=== PATIENT | male | born 1965 | race Caucasian/White ===

== ENCOUNTER 2018-09-11 16:05 | Inpatient (IN) | payer SELFPAY ==
[~2018-09-11] VITALS: Ht 165.1 cm; Wt 72.3 kg
[2018-09-11] MEDS ORDERED: MVI, ADULT NO.4 WITH VIT K 10 ML, FOLIC ACID SYRINGE for ER 1 MG, THIAMINE INJ 100 MG i... IV ONE ×4 (16:15)
--- NOTE | 2018-09-11 16:26 | PHYS DOC ---
Past History Past Medical History: Alcoholism, Anxiety, Depression, Seizure Past Medical History Limited due to ETOH intoxication Past Surgical History: No Surgical History Past Surgical History Limited due to ETOH intoxication. Smoking: Cigarettes Alcohol Use: Heavy Drug Use: None Social History Limited due to ETOH intoxication. Adult General Chief Complaint Chief Complaint: ALCOHOL INTOXICATION HPI HPI 52-year-old male presents via EMS with report of alcohol intoxication with statement made that he had some suicidal ideation today. Patient currently denies any suicidal ideation or plan. Patient does report having a thought earlier today which she was able to dismiss. Patient does report chronic alcoholism in which patient reportedly drinks 24ounce x 2-3 beers daily and has for several years. Patient reports he knows that he needs help. Reports is set up to do ETOH rehab but not until mid-October. Patient reports he also struggles with depression. Reports he and some friends got together and have been drinking all morning. Denies trauma. Denies fever/chills. Denies nausea or vomiting. Patient repots history of seizure disorder. Patient reports he thinks the seizures are related to his ETOH but unsure. Reports takes Gabapentin for seizures. Reports last seizure was approximately 1 month ago. History of present illness limited due to alcohol intoxication. Review of Systems Review of Systems Constitutional: Denies fever or chills Eyes: Denies redness or eye pain HENT: Denies nasal congestion or sore throat Respiratory: Denies cough or shortness of breath Cardiovascular: Denies chest pain or palpitations GI: Denies abdominal pain, nausea, or vomiting : Denies dysuria or hematuria Neurologic: Denies headache Psychiatric: Reports ETOH abuse, reports suicidal ideation; denies homicidal ideation. Review of systems limited due to alcohol intoxication Current Medications Current Medications Current Medications Medications (Trade) Dose Ordered Sig/Peña Start Time Stop Time Status Last Admin Dose Admin Multivitamins/ Minerals 10 ml/ Folic Acid 1 mg/ Thiamine HCl 100 mg/Sodium Chloride 1,011.1 ml @ 1,000 mls/ hr 1X ONCE 09/11/18 16:15 09/11/18 17:15 UNV Allergies Allergies Allergies Coded Allergies Type Severity Reaction Last Updated Verified No Known Drug Allergies 09/11/18 No Physical Exam Physical Exam Constitutional: Well developed, well nourished, intoxicated, disheveled HENT: Normocephalic, atraumatic, oropharynx moist Eyes: PERRL, EOMI, conjunctiva injected, horizontal nystagmus noted Neck: Normal range of motion, no tenderness, supple Cardiovascular: Heart rate normal, regular rhythm Lungs & Thorax: Bilateral breath sounds clear to auscultation, no wheezing Abdomen: Soft, no tenderness Skin: Warm, dry, no erythema, no rash Extremities: No tenderness, ROM intact, no edema Neurologic: Alert and oriented, pleasantly intoxicated, no focal deficits noted Psychologic: Affect flat, judgement abnormal EKG EKG @1632 NST at 98bpm, NO ST elevation, QRS 76ms, QT/QTc 332/426ms Radiology/Procedures Radiology/Procedures [] Course & Med Decision Making Course & Med Decision Making Pertinent Lab studies reviewed. (See chart for details) Patient presents with report of alcohol abuse with report of suicidal ideation this morning. Patient denies current plan. Patient does have a history of chronic alcohol use and history of seizures. Patient thinks seizures are related to his alcohol use however is not fully aware. Patient reports he is prescribed gabapentin for seizure control. Patient is awake but intoxicated. Labs obtained and posted to chart. Alcohol greater than 300. Lactic acid 3.8. SIRS criteria and not met. No source of infection noted. IV fluid hydration given in addition to banana bag. Patient requiring medical admission for clearance prior to psychiatric evaluation/admission. Patient requiring admission for further evaluation and treatment. Discussed with Dr. Rodriguez (hospitalist) who is in agreement with admission. Discussed findings and plan with patient, who acknowledges understanding and agreement. Dragon Disclaimer Dragon Disclaimer This electronic medical record was generated, in whole or in part, using a voice recognition dictation system. Departure Departure: Impression: Primary Impression: Alcohol abuse Additional Impressions: Lactic acidosis Impending delirium tremens Disposition: ADMITTED INPATIENT (ICU) Admitting Physician: Willie Rodriguez Condition: GUARDED Referrals: PCP,NO (PCP) Critical Care Time Critical care time was 30 minutes which includes time at bedside, spent in discussion of patient's care with specialists and/or family members, with interpretation of laboratory and/or radiological studies and is exclusive of procedures. Problem Qualifiers NATALIE MONTEZ DO Sep 11, 2018 16:26
[2018-09-11 16:33] LABS: BASO % 1 % (0-3); EOS # 0.1 x10^3/uL (0.0-0.7); EOS % 2 % (0-3); HEMATOCRIT 42.9 % (39.0-53.0); HEMOGLOBIN 14.9 g/dL (13.0-17.5); LYMPH # 2.1 x10^3/uL (1.0-4.8); LYMPH % 38 % (24-48); MEAN CORPUSCULAR HEMOGLOBIN 35 pg (25-35); MEAN CORPUSCULAR HGB CONC 35 g/dL (31-37); MEAN CORPUSCULAR VOLUME 101 fL (79-100); MONO # 0.8 x10^3/uL (0.0-1.1); MONO % 14 % (0-9); NEUT # 2.6 x10^3uL (1.8-7.7); NEUT % 46 % (31-73); PLATELET COUNT 115 x10^3/uL (140-400); RED BLOOD COUNT 4.27 x10^6/uL (4.30-5.70); RED CELL DISTRIBUTION WIDTH 14.6 % (11.5-14.5); WHITE BLOOD COUNT 5.6 x10^3/uL (4.0-11.0)
[2018-09-11 16:47] LABS: ACETAMIN < 2 mcg/mL (10-30); ETHANOL 313 mg/dL (0-10); SALIC 8.5 mg/dL (2.8-20.0)
[2018-09-11 16:52] LABS: BACTERIA,URINE 0 /HPF (0-FEW); BILIRUBIN,URINE NEG (NEG); CLARITY,URINE HAZY; COLOR,URINE YELLOW; GLUCOSE,URINE NEG (NEG); NITRITE,URINE NEG (NEG); RBC,URINE 0 /HPF (0-2); SQUAMOUS EPITHELIAL CELL,UR OCC /LPF; UROBILINOGEN,URINE 0.2 mg/dL (0.2 mg/dL); WBC,URINE 0 /HPF (0-4)
[2018-09-11 16:53] LABS: AMPHETAMINE/METHAMPHETAMINE NEG (NEG); BARBITURATES NEG (NEG); BENZODIAZEPINES NEG (NEG); CANNABINOIDS NEG (NEG); COCAINE NEG (NEG); METHADONE NEG (NEG); OPIATES NEG (NEG); PHENCYCLIDINE NEG (NEG)
[2018-09-11 16:54] LABS: ALBUMIN 3.5 g/dL (3.4-5.0); ALBUMIN/GLOBULIN RATIO 0.9 (1.0-1.7); CALCIUM 8.8 mg/dL (8.5-10.1); CREATININE 0.7 mg/dL (0.7-1.3); GFR 117.5; POTASSIUM 3.6 mmol/L (3.5-5.1); TOTAL BILIRUBIN 0.4 mg/dL (0.2-1.0); TOTAL PROTEIN 7.2 g/dL (6.4-8.2)
[2018-09-11] MEDS ORDERED: ONDANSETRON PF 4 MG/2 ML VIAL. IV PRN (17:15)
--- NOTE | 2018-09-11 17:47 | EKG ---
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
[2018-09-11 19:20] VITALS: BP 150/88
[2018-09-11 20:30] VITALS: BP 150/81
[2018-09-11] MEDS ORDERED: cloNIDine HCL 0.1 MG TABLET PO PRN (21:00)
[2018-09-11] MEDS ORDERED: diphenhydrAMINE 50 MG/ML VIAL IVP PRN (21:00)
[2018-09-11] MEDS ORDERED: HALOPERIDOL LACT 5 MG/ML VIAL. IM PRN (21:00)
[2018-09-11] MEDS ORDERED: chlordiazePOXIDE HCL 25 MG CAPSULE PO PRN ×2 (21:00)
[2018-09-11] MEDS ORDERED: TRAZ-86 PO (21:15)
[2018-09-11] MEDS ORDERED: SERT50TA PO (21:15)
[2018-09-11] MEDS ORDERED: GABA-586 PO (21:15)
[2018-09-11 21:30] VITALS: BP 107/60
[2018-09-11] MEDS: IV NORMAL SALINE 1,000ML 1,000 ML IV SCH (21:46)
[2018-09-11] MEDS: GABAPENTIN 300 MG CAPSULE. PO SCH (21:46)
[2018-09-11] MEDS: NICOTINE 14MG PATCH. TD SCH (21:46)
[2018-09-11] MEDS: traZODone 100 MG TABLET. PO SCH (21:47)
[2018-09-11 22:30] VITALS: BP 115/62
[2018-09-11 23:49] VITALS: BP 115/70
[2018-09-12] VITALS (18 sets, daily range): BP systolic 102–161; BP diastolic 57–93
[2018-09-12] MEDS: IV NORMAL SALINE 1,000ML 1,000 ML IV SCH ×4 (04:23→23:40)
[2018-09-12 06:20] LABS: BASO # 0.1 x10^3/uL (0.0-0.2); BASO % 1 % (0-3); EOS # 0.1 x10^3/uL (0.0-0.7); EOS % 3 % (0-3); HEMATOCRIT 40.5 % (39.0-53.0); HEMOGLOBIN 13.9 g/dL (13.0-17.5); LYMPH # 1.1 x10^3/uL (1.0-4.8); LYMPH % 24 % (24-48); MEAN CORPUSCULAR HEMOGLOBIN 35 pg (25-35); MEAN CORPUSCULAR HGB CONC 34 g/dL (31-37); MEAN CORPUSCULAR VOLUME 101 fL (79-100); MONO # 0.6 x10^3/uL (0.0-1.1); MONO % 14 % (0-9); NEUT # 2.6 x10^3uL (1.8-7.7); NEUT % 58 % (31-73); PLATELET COUNT 96 x10^3/uL (140-400); RED BLOOD COUNT 4.01 x10^6/uL (4.30-5.70); RED CELL DISTRIBUTION WIDTH 14.6 % (11.5-14.5); WHITE BLOOD COUNT 4.4 x10^3/uL (4.0-11.0)
[2018-09-12 06:25] LABS: CALCIUM 8.2 mg/dL (8.5-10.1); CREATININE 0.6 mg/dL (0.7-1.3); GFR 140.4; POTASSIUM 3.5 mmol/L (3.5-5.1)
[2018-09-12] MEDS: GABAPENTIN 300 MG CAPSULE. PO SCH ×2 (08:42→20:22)
[2018-09-12] MEDS: SERTRALINE 50 MG TABLET. PO SCH (08:42)
[2018-09-12] MEDS: NICOTINE 14MG PATCH. TD SCH (08:43)
[2018-09-12] MEDS: MVI, ADULT NO.4 WITH VIT K 10 ML, THIAMINE INJ 100 MG, FOLIC ACID INJ 1 MG in IV NORMAL... IV SCH ×4 (09:28)
[2018-09-12] MEDS ORDERED: LOPERAMIDE 2 MG CAPSULE PO PRN (16:30)
--- NOTE | 2018-09-12 17:13 | HP ---
ADMIT DATE: 09/11/2018 HISTORY OF PRESENT ILLNESS: The patient is a 52-year-old male patient who basically presented to the Emergency Room via EMS with report of alcohol intoxication statement made that he had some suicidal ideation. By the time he arrived to the Emergency Room, he denied any suicidal ideation or plans. Does report of having thought earlier today which he was able to dismiss. He does report that he has chronic alcoholism, in which the patient reports he drinks 24 ounce x 2-3 beers daily and has for several years. He reported that he needs help. He has arrangement to do alcohol rehabilitation, but not until mid October. He also struggles with depression, has some friends got together and have been drinking all morning. He denied any nausea or vomiting. He has had alcohol withdrawal seizures and he is taking gabapentin for that. His last seizure was approximately a month ago. 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 PAST SURGICAL HISTORY: Unremarkable. ALLERGIES: He has no known drug allergies. MEDICATIONS: He is currently on gabapentin 300 mg twice a day, sertraline 50 mg once a day, and trazodone 100 mg at bedtime. FAMILY HISTORY: He has one brother younger and has schizophrenia, 1 older sister healthy and lives in [place]. His father in his 50s in house fire. Mother in her 50s because of brain tumor. SOCIAL HISTORY: He is single, never , has no children. He smokes a pack a day, drinks 3-4 24-ounce cans of beer. He is currently homeless. He stated he started drinking alcohol when he was 7 years old. 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 Apparently, his alcohol addiction has continued there also. He went to [facility] and has been since homeless. PHYSICAL EXAMINATION: GENERAL: On arrival to the Emergency Room, he looked excessively tanned, but he was in no respiratory distress. VITAL SIGNS: His heart rate was 103, blood pressure 116/77, temperature was 98.8, respiratory rate was 16, and oxygen saturation was 98%. HEAD, EYES, EARS, NOSE AND THROAT: Normocephalic, atraumatic. NECK: Supple. HEART: Showed normal first and second heart sounds. No gallop, rub or murmur. CHEST: Clear to auscultation. No crepitation or rhonchi. ABDOMEN: Distended, soft, nontender. NEUROLOGIC: He was apparently intoxicated, but without any obvious lateralizing sign. LABORATORY DATA: On admission showed a white cell count 5600, hemoglobin 14.9, hematocrit 42, MCV 101, and platelet count of 115,000. His prothrombin time was less than 9.3, INR of 0.9 and aPTT was 23. His serum sodium was 141, potassium 3.6, chloride 101, bicarbonate 25, anion gap of 15, BUN 4, creatinine 0.7, estimated GFR was 117 mL per minute. His glucose was 83. His lactic acid was high at 3.8, calcium was 8.8, magnesium 2. Total bilirubin, AST, ALT, alkaline phosphatase were normal. Total protein was 7.2, albumin was 3.5 and lipase was 106. His urinalysis was essentially unremarkable. Toxic screen was essentially negative except for high blood alcohol level of 313 mg/dL. ASSESSMENT AND PLAN: The patient was admitted to the ICU and was started on alcohol withdrawal protocol with the banana bag. Continue all his medication as well as Nicoderm patch. We will monitor him closely and he is on 15 minutes checkup. We will repeat all his lab works again and [facility] to see if he can be placed in an inpatient psychiatric stabilization, given that he has suicidal ideation. ALICE ALVARADO MD DR: CHARLIE/bob JOB#: [id number] / [id number]
[2018-09-12] MEDS: TRIAMCINOLONE ACETONIDE 0.1% TOPICAL CREAM 15GM TUBE. TP SCH (20:21)
[2018-09-12] MEDS: traZODone 100 MG TABLET. PO SCH (20:21)
[2018-09-13] VITALS (9 sets, daily range): BP systolic 117–159; BP diastolic 74–90
--- NOTE | 2018-09-13 00:30 | PN ---
DATE: 09/12/2018 SUBJECTIVE: The patient is resting, slightly propped up in bed, in no apparent distress. He continued to be depressed and has suicidal ideation, although has no plans for that. Continue to complain of pain in his right hip joint and has skin rash on the abdominal wall at graphical in shape and consistent with looked like contact dermatitis, probably related to his belt. PHYSICAL EXAMINATION: GENERAL: When I examined him today, he looked well and was clearly in no apparent distress. No pallor, jaundice, cyanosis, or thyromegaly. No jugular venous distension. No lower limb edema. VITAL SIGNS: His heart rate was 90, blood pressure was 143/89, temperature was 97.9, respiratory rate 20, and oxygen saturation was 95% on room air. HEAD, EYES, EARS, NOSE AND THROAT: Showed normocephalic, atraumatic. NECK: Supple. HEART: Showed normal first and second heart sounds with no gallop, rub or murmur. CHEST: Clear to auscultation. No crepitation or rhonchi. ABDOMEN: Distended, soft, nontender. NEUROLOGIC: He is definitely awake, alert, responding appropriately. All cranial nerves intact. He moves extremities without difficulty. SKIN: He was seemed to be markedly tanned. He has also skin rash in the anterior abdominal wall above the symphysis pubis, probably some form of contact dermatitis, which I started him on triamcinolone cream to be applied topically twice a day. LABORATORY DATA: His lab work this morning showed a white cell count of 4400, hemoglobin 13.9, hematocrit 40, MCV 101, and platelet count of 96,000. His serum sodium was 141, potassium 3.5, chloride 103, bicarbonate 29, anion gap of 9, BUN 3, creatinine 0.6, estimated GFR was 140 mL per minute. His glucose was 79, calcium was 8.2. He did have diarrhea, but his C. diff toxin was negative. In summary: 1. There is alcoholism and alcohol withdrawal. 2. Suicidal ideation. 3. Eosinophilic granuloma, in remission. The patient continued to be extremely tremulous. PLAN: To give keep him one more overnight and then hopefully tomorrow, he can be discharged to [facility] for inpatient psychiatric stabilization. ALICE ALVARADO MD DR: CHARLIE/bob JOB#: [id number] / [id number]
[2018-09-13] MEDS: IV NORMAL SALINE 1,000ML 1,000 ML IV SCH ×2 (02:25→09:23)
[2018-09-13] MEDS: MVI, ADULT NO.4 WITH VIT K 10 ML, THIAMINE INJ 100 MG, FOLIC ACID INJ 1 MG in IV NORMAL... IV SCH ×8 (07:41→09:21)
--- NOTE | 2018-09-13 09:05 | PDOC ---
SUBJECTIVE: CC: Alcohol intoxication Alert Sober Long discussion regarding his downward spiral He denies any active ideations of self harm. He is agreeable to go to an inpatient program OBJECTIVE: Problems: Problems Medical Problems: (1) Alcohol abuse Status: Acute (2) Impending delirium tremens Status: Acute (3) Lactic acidosis Status: Acute Vital Signs: Vital Signs Date Time Temp Pulse Resp B/P (MAP) Pulse Ox O2 Delivery O2 Flow Rate FiO2 09/13/18 05:57 97.4 86 20 125/81 (96) 96 Room Air 09/12/18 16:30 2.0 I & O Intake and Output 09/13/18 07:00 Intake Total 4288 ml Balance 4288 ml Intake Oral 1790 ml IV Total 2498 ml # Voids 5 # Bowel Movements 2 Labs: Laboratory Tests Test 09/11/18 16:00 09/11/18 19:20 09/11/18 19:40 09/12/18 05:48 White Blood Count 5.6 x10^3/uL (4.0-11.0) 4.4 x10^3/uL (4.0-11.0) Red Blood Count 4.27 x10^6/uL (4.30-5.70) 4.01 x10^6/uL (4.30-5.70) Hemoglobin 14.9 g/dL (13.0-17.5) 13.9 g/dL (13.0-17.5) Hematocrit 42.9 % (39.0-53.0) 40.5 % (39.0-53.0) Mean Corpuscular Volume 101 fL (79-100) 101 fL (79-100) Mean Corpuscular Hemoglobin 35 pg (25-35) 35 pg (25-35) Mean Corpuscular Hemoglobin Concent 35 g/dL (31-37) 34 g/dL (31-37) Red Cell Distribution Width 14.6 % (11.5-14.5) 14.6 % (11.5-14.5) Platelet Count 115 x10^3/uL (140-400) 96 x10^3/uL (140-400) Neutrophils (%) (Auto) 46 % (31-73) 58 % (31-73) Lymphocytes (%) (Auto) 38 % (24-48) 24 % (24-48) Monocytes (%) (Auto) 14 % (0-9) 14 % (0-9) Eosinophils (%) (Auto) 2 % (0-3) 3 % (0-3) Basophils (%) (Auto) 1 % (0-3) 1 % (0-3) Neutrophils # (Auto) 2.6 x10^3uL (1.8-7.7) 2.6 x10^3uL (1.8-7.7) Lymphocytes # (Auto) 2.1 x10^3/uL (1.0-4.8) 1.1 x10^3/uL (1.0-4.8) Monocytes # (Auto) 0.8 x10^3/uL (0.0-1.1) 0.6 x10^3/uL (0.0-1.1) Eosinophils # (Auto) 0.1 x10^3/uL (0.0-0.7) 0.1 x10^3/uL (0.0-0.7) Basophils # (Auto) 0.0 x10^3/uL (0.0-0.2) 0.1 x10^3/uL (0.0-0.2) Prothrombin Time < 9.3 SEC (9.4-11.4) Prothromb Time International Ratio 0.9 (0.9-1.1) Activated Partial Thromboplast Time 23 SEC (23-33) Urine Collection Type Unknown Urine Color Yellow Urine Clarity Hazy Urine pH 6.5 Urine Specific [place] <=1.005 Urine Protein Neg (NEG-TRACE) Urine Glucose (UA) Neg mg/dL (NEG) Urine Ketones (Stick) Neg mg/dL (NEG) Urine Blood Trace (NEG) Urine Nitrite Neg (NEG) Urine Bilirubin Neg (NEG) Urine Urobilinogen Dipstick 0.2 mg/dL (0.2 mg/dL) Urine Leukocyte Esterase Neg (NEG) Urine RBC 0 /HPF (0-2) Urine WBC 0 /HPF (0-4) Urine Squamous Epithelial Cells Occ /LPF Urine Bacteria 0 /HPF (0-FEW) Sodium Level 141 mmol/L (136-145) 141 mmol/L (136-145) Potassium Level 3.6 mmol/L (3.5-5.1) 3.5 mmol/L (3.5-5.1) Chloride Level 101 mmol/L (98-107) 103 mmol/L (98-107) Carbon Dioxide Level 25 mmol/L (21-32) 29 mmol/L (21-32) Anion Gap 15 (6-14) 9 (6-14) Blood Urea Nitrogen 4 mg/dL (8-26) 3 mg/dL (8-26) Creatinine 0.7 mg/dL (0.7-1.3) 0.6 mg/dL (0.7-1.3) Estimated GFR (Cockcroft-Gault) 117.5 140.4 BUN/Creatinine Ratio 6 (6-20) Glucose Level 83 mg/dL (70-99) 79 mg/dL (70-99) Lactic Acid Level 3.8 mmol/L (0.4-2.0) 2.6 mmol/L (0.4-2.0) Calcium Level 8.8 mg/dL (8.5-10.1) 8.2 mg/dL (8.5-10.1) Magnesium Level 2.0 mg/dL (1.8-2.4) Total Bilirubin 0.4 mg/dL (0.2-1.0) Aspartate Amino Transf (AST/SGOT) 82 U/L (15-37) Alanine Aminotransferase (ALT/SGPT) 60 U/L (16-63) Alkaline Phosphatase 85 U/L (46-116) Creatine Kinase 154 U/L (39-308) Creatine Kinase MB (Mass) 0.6 ng/mL (0.0-3.6) Creatine Kinase MB Relative Index 0.4 % (0-4) Troponin I Quantitative < 0.017 ng/mL (0-0.055) Total Protein 7.2 g/dL (6.4-8.2) Albumin 3.5 g/dL (3.4-5.0) Albumin/Globulin Ratio 0.9 (1.0-1.7) Lipase 164 U/L (73-393) Salicylates Level 8.5 mg/dL (2.8-20.0) Salicylate Last Dose Date Unknown Salicylate Last Dose Time Unknown Urine Opiates Screen Neg (NEG) Urine Methadone Screen Neg (NEG) Acetaminophen Level < 2 mcg/mL (10-30) Acetaminophen Last Dose Date Unknown Acetaminophen Last Dose Time Unknown Urine Barbiturates Neg (NEG) Urine Phencyclidine Screen Neg (NEG) Urine Amphetamine/Methamphetamine Neg (NEG) Urine Benzodiazepines Screen Neg (NEG) Urine Cocaine Screen Neg (NEG) Urine Cannabinoids Screen Neg (NEG) Ethyl Alcohol Level 313 mg/dL (0-10) Urine Ethyl Alcohol Pos (NEG) Nasal Screen MRSA (PCR) Negative (Negative) Test 09/12/18 07:00 Clostridium difficile Toxin B Gene Negative (Negative) Physical Exam: HEENT: PERRLA Neck supple Chest: clear to auscultation CV: RRR Abd: soft, nontender Ext: no edema Neuro: sober, ambulatory ASSESSMENT: Acute alcohol intoxication Chronic Alcoholism Major Depression Pt is agreeable to impatient psych placement CORTES COHN MD Sep 13, 2018 09:05
[2018-09-13] MEDS: NICOTINE 14MG PATCH. TD SCH (09:21)
[2018-09-13] MEDS: TRIAMCINOLONE ACETONIDE 0.1% TOPICAL CREAM 15GM TUBE. TP SCH (09:21)
[2018-09-13] MEDS: SERTRALINE 50 MG TABLET. PO SCH (09:22)
[2018-09-13] MEDS: GABAPENTIN 300 MG CAPSULE. PO SCH (09:22)
--- NOTE | 2018-09-14 05:09 | DS ---
DATE OF DISCHARGE: 09/13/2018 ATTENDING PHYSICIAN: Dr. Rodriguez. FINAL DISCHARGE DIAGNOSES: 1. Acute alcohol intoxication. 2. Impending alcohol withdrawal. 3. Chronic alcoholism. 4. Major depression. 5. Hints of suicidal ideation. 6. Chronic obstructive pulmonary disease due to tobacco use. HISTORY AND PHYSICAL: This is a pleasant 52-year-old gentleman admitted through the ED with some suicidal ideation, chronic alcoholism, and difficulty sleeping at night. Last seizure was a month ago. 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 He has no recorded drug allergies. He was taking Neurontin, Zoloft and trazodone. He states the trazodone was not helpful in managing sleep. PHYSICAL EXAMINATION: Please see the dictated note. COURSE IN THE HOSPITAL: The patient was admitted. He was given IV fluids, banana bag, p.r.n. Ativan. Diet was advanced. He did fairly well. IVs were discontinued. By the next day, he was quite sober. He had no impending delirium tremens and was interested in going to an acute inpatient psychiatric rehabilitation program. Arrangements were then made for [facility] inpatient psychiatric unit in [place], [place]. The problem is transportation. At this time, we are discharging home, he is stable. We will try to get transportation to go from [place] to [facility]. He should continue his Zoloft and Neurontin dose is unchanged. The patient was then discharged from our hospital in stable condition with explicit instructions and followup care. CORTES COHN MD DR: KATARINA/bob JOB#: [id number] / [id number]
== END 2018-09-13 13:45 | disposition home or self-care (01) | DRG 897 ==
LOC: ER 16:05 → EDBD 16:05 → ICU 17:10
PROVIDERS: ADMIT Internal Medicine; ATTEND Internal Medicine
DX: F10.239 Alcohol dependence with withdrawal, unspecified (principal); E87.2 Acidosis; R45.851 Suicidal ideations; C96.6 Unifocal Langerhans-cell histiocytosis; F10.229 Alcohol dependence with intoxication, unspecified; F17.210 Nicotine dependence, cigarettes, uncomplicated; F32.9 Major depressive disorder, single episode, unspecified; F41.9 Anxiety disorder, unspecified; G40.909 Epilepsy, unspecified, not intractable, without status epilepticus; J44.9 Chronic obstructive pulmonary disease, unspecified; Z59.0 Homelessness; Z81.8 Family history of other mental and behavioral disorders
CPT/HCPCS: 36415; 80048; 80053; 80307; 80329; 81001; 82553; 83605; 83690; 83735; 84484; 85025; 85610; 85730; 87493; 87641; 93005; 96365; G0480; J2060; 82003; 99291-25; J7030

== ENCOUNTER 2018-11-24 12:02 | Emergency (ER) | payer SELFPAY ==
[~2018-11-24 12:02] MED LIST: GABA-586 PO; SERT50TA PO; TRAZ-86 PO
[2018-11-24 12:10] VITALS: BP 111/78
[2018-11-24] MEDS ORDERED: MVI, ADULT NO.4 WITH VIT K 10 ML, FOLIC ACID SYRINGE for ER 1 MG, THIAMINE INJ 100 MG i... IV ONE ×4 (12:15)
[2018-11-24 12:29] LABS: BASO % 1 % (0-3); EOS % 0 % (0-3); HEMATOCRIT 44.1 % (39.0-53.0); HEMOGLOBIN 15.4 g/dL (13.0-17.5); LYMPH # 1.5 x10^3/uL (1.0-4.8); LYMPH % 24 % (24-48); MEAN CORPUSCULAR HEMOGLOBIN 35 pg (25-35); MEAN CORPUSCULAR HGB CONC 35 g/dL (31-37); MEAN CORPUSCULAR VOLUME 100 fL (79-100); MONO # 0.6 x10^3/uL (0.0-1.1); MONO % 10 % (0-9); NEUT # 4.1 x10^3uL (1.8-7.7); NEUT % 65 % (31-73); PLATELET COUNT 127 x10^3/uL (140-400); RED CELL DISTRIBUTION WIDTH 14.2 % (11.5-14.5); WHITE BLOOD COUNT 6.3 x10^3/uL (4.0-11.0)
[2018-11-24 12:36] LABS: ALBUMIN 3.7 g/dL (3.4-5.0); ALBUMIN/GLOBULIN RATIO 0.9 (1.0-1.7); CALCIUM 8.8 mg/dL (8.5-10.1); CREATININE 0.7 mg/dL (0.7-1.3); GFR 117.5; POTASSIUM 3.7 mmol/L (3.5-5.1); TOTAL BILIRUBIN 0.8 mg/dL (0.2-1.0); TOTAL PROTEIN 7.7 g/dL (6.4-8.2)
--- NOTE | 2018-11-24 12:38 | PHYS DOC ---
Past History Past Medical History: Cancer (eosinophilic granuloma), Seizure Past Surgical History: No Surgical History Smoking: Cigarettes Alcohol Use: Heavy Drug Use: None Adult General Chief Complaint Chief Complaint: SEIZURE HPI HPI Patient is a 52-year-old male presents with the complaint of feeling like he is going to have a seizure. When he has had seizures in the past he has had an aura. He has been off of his anti-seizure medicine, gabapentin, for approximately a week. He has been drinking alcohol today. Last drink 15-20 minutes prior to calling EMS. No nausea or vomiting. No loss of bowel or bladder control.[] Review of Systems Review of Systems Constitutional: Denies fever or chills [] Eyes: Denies change in visual acuity, redness, or eye pain [] HENT: Denies nasal congestion or sore throat [] Respiratory: Denies cough or shortness of breath [] Cardiovascular: No chest pain or palpitations[] GI: Denies abdominal pain, nausea, vomiting, bloody stools or diarrhea [] : Denies dysuria or hematuria [] Musculoskeletal: Denies back pain or joint pain [] Integument: Denies rash or skin lesions [] Neurologic: Denies headache, focal weakness or sensory changes [] Endocrine: Denies polyuria or polydipsia [] All other systems were reviewed and found to be within normal limits, except as documented in this note. Current Medications Current Medications Current Medications Medications (Trade) Dose Ordered Sig/Peña Start Time Stop Time Status Last Admin Dose Admin Lorazepam (Ativan Inj) 2 mg STK-MED ONCE 11/24/18 12:20 11/24/18 12:20 DC Multivitamins/ Minerals 10 ml/ Folic Acid 1 mg/ Thiamine HCl 100 mg/Lactated Ringer's 1,011.2 ml @ 1,011.2 mls/hr 1X ONCE 11/24/18 12:15 11/24/18 13:14 Allergies Allergies Allergies Coded Allergies Type Severity Reaction Last Updated Verified No Known Drug Allergies 09/11/18 No Physical Exam Physical Exam Constitutional: Well developed, well nourished, no acute distress, non-toxic appearance. [] HENT: Normocephalic, atraumatic, bilateral external ears normal, oropharynx moist, no oral exudates, nose normal. [] Eyes: PERRLA, EOMI, conjunctiva normal, no discharge. [] Neck: Normal range of motion, no tenderness, supple, no stridor. [] Cardiovascular:Heart rate regular rhythm, no murmur [] Lungs & Thorax: Bilateral breath sounds clear to auscultation [] Abdomen: Bowel sounds normal, soft, no tenderness, no masses, no pulsatile masses. [] Skin: Warm, dry, no erythema, no rash. [] Back: No tenderness, no CVA tenderness. [] Extremities: No tenderness, no cyanosis, no clubbing, ROM intact, no edema. [] Neurologic: Alert and oriented X 3, normal motor function, normal sensory function, no focal deficits noted. No asterixis. No tremor.[] Psychologic: Affect normal, judgement normal, mood normal. [] Current Patient Data Vital Signs Vital Signs Date Time Temp Pulse Resp B/P (MAP) Pulse Ox O2 Delivery O2 Flow Rate FiO2 11/24/18 12:10 98 18 96 Room Air EKG EKG [] Radiology/Procedures Radiology/Procedures [] Course & Med Decision Making Course & Med Decision Making Pertinent Labs and Imaging studies reviewed. (See chart for details) ED course: Patient arrived, was placed in bed, and tolerated exam well. There has been no seizure activity while he is been in the emergency department. After the return of laboratory findings, these were discussed patient voiced understanding. All questions were answered. He was discharged in improved co ndition. Medical decision makin-year-old male with alcohol intoxication with no evidence of seizure withdrawal activity. No evidence of significant electrolyte abnormality. No evidence of nausea or vomiting.[] Dragon Disclaimer Dragon Disclaimer This electronic medical record was generated, in whole or in part, using a voice recognition dictation system. Departure Departure: Impression: Primary Impression: Alcohol intoxication Additional Impression: Seizure disorder Disposition: HOME, SELF-CARE Condition: STABLE Referrals: PCP,NO (PCP) Patient Instructions: Alcohol Intoxication, Seizure, Adult Additional Instructions: Follow-up with your regular doctor in 2 days. If you do not have regular doctor list of local clinics will be provided for you. No driving for the next 6 hours. Take your medication as prescribed. Return to the ER if you develop a seizure or any other concerns. Problem Qualifiers Primary Impression: Alcohol intoxication Complication of substance-induced condition: uncomplicated Qualified Codes: F10.920 - Alcohol use, unspecified with intoxication, uncomplicated EIDENBERG,CLYDE DO Nov 24, 2018 12:38
[2018-11-24 13:15] LABS: AMPHETAMINE/METHAMPHETAMINE NEG (NEG); BARBITURATES NEG (NEG); BENZODIAZEPINES NEG (NEG); CANNABINOIDS NEG (NEG); COCAINE NEG (NEG); METHADONE NEG (NEG); OPIATES NEG (NEG); PHENCYCLIDINE NEG (NEG)
--- NOTE | 2018-11-25 08:36 | EKG ---
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
== END 2018-11-24 13:47 | disposition home or self-care (01) ==
LOC: ER 12:02
DX: G40.909 Epilepsy, unspecified, not intractable, without status epilepticus (principal); F10.129 Alcohol abuse with intoxication, unspecified; F17.210 Nicotine dependence, cigarettes, uncomplicated; Y90.7 Blood alcohol level of 200-239 mg/100 ml
CPT/HCPCS: 36415; 80053; 80307; 83735; 85025; 93005; 96365; 99285; G0480; J7120